=== PATIENT | male | born 1945 | race Caucasian/White ===

== ENCOUNTER 2023-09-20 17:38 | Emergency (ER) | payer MEDICARE ==
[2023-09-20] MEDS ORDERED: Boostrix 0.5 ML (Tdap) VIAL (>/=7 yrs of age) ONE (18:04)
[2023-09-20] MEDS ORDERED: HYDROcodone/Acetaminophen 5/325 mg Tablet ONE (18:04)
== END 2023-09-20 19:15 | disposition home or self-care (01) ==
LOC: MADERS 17:38
DX: S06.0X0A Concussion without loss of consciousness, initial encounter (principal); S02.40DB Maxillary fracture, left side, initial encounter for open fracture; I10 Essential (primary) hypertension; E78.00 Pure hypercholesterolemia, unspecified; W22.8XXA Striking against or struck by other objects, initial encounter; Z23 Encounter for immunization; Z79.899 Other long term (current) drug therapy
CPT/HCPCS: 12011; 70450; 70486; 90471; 90715